=== PATIENT | male | born 1995 | race Caucasian/White ===

== ENCOUNTER 2022-02-10 21:09 | Emergency (ER) | payer OTHER ==
[~2022-02-10] VITALS: Ht 167.6 cm; Wt 59.9 kg
[2022-02-10 22:47] VITALS: BP 142/98
[2022-02-10] MEDS ORDERED: TDAP [DIPH/PERTUSSIS/TET] 0.5 ML VIAL IM ONE ×2 (23:00→23:03)
== END 2022-02-10 23:15 | disposition home or self-care (01) ==
LOC: ER 21:24
DX: S61.412A Laceration without foreign body of left hand, initial encounter (principal); W26.0XXA Contact with knife, initial encounter; Y93.G3 Activity, cooking and baking; Y92.89 Other specified places as the place of occurrence of the external cause; Y99.0 Civilian activity done for income or pay
CPT/HCPCS: 90715